=== PATIENT | female | born 1960 | race African-American/Black ===

== ENCOUNTER 2021-03-11 11:42 | Emergency (ER) | payer OTHER ==
[~2021-03-11] VITALS: Ht 160 cm; Wt 71.7 kg
[2021-03-11 11:45] VITALS: BP_SYST 124
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
--- NOTE | 2021-03-11 12:45 | NUR ---
PT TO XRAY
[2021-03-11] MEDS ORDERED: IBUP-1969 PO (13:35)
[2021-03-11] MEDS ORDERED: HYDR-3917 PO (13:35)
--- NOTE | 2021-03-11 14:28 | NUR ---
VOLAR SPLINT APPLIED BY KYLAH KING
--- NOTE | 2021-03-11 14:32 | NUR ---
Patient given written and verbal discharge instructions and verbalizes understanding. ER MD discussed with patient the results and treatment provided. Patient in stable condition. ID arm band removed. Rx of NORCO, IBUPROFEN given. Patient educated on pain management and to follow up with PMD. Pain Scale . Opportunity for questions provided and answered. Medication side effect fact sheet provided.
[2021-03-11 14:33] VITALS: BP_SYST 115
--- NOTE | 2021-03-11 14:33 | NUR ---
PT REQUESTING WORK OFF NOTE. NOTE PROVIDED BY DR TRIPATHI
== END 2021-03-11 14:25 | disposition home or self-care (01) ==
LOC: SED 11:42
DX: S52.501A Unspecified fracture of the lower end of right radius, initial encounter for closed fracture (principal); S13.4XXA Sprain of ligaments of cervical spine, initial encounter; S33.5XXA Sprain of ligaments of lumbar spine, initial encounter; V49.49XA Driver injured in collision with other motor vehicles in traffic accident, initial encounter; Y93.89 Activity, other specified; Y92.89 Other specified places as the place of occurrence of the external cause; Y99.8 Other external cause status
CPT/HCPCS: 72040-TC; 72100-TC; 99284